=== PATIENT | male | born 1990 | race Caucasian/White ===

== ENCOUNTER 2022-09-22 01:36 | Emergency (ER) | payer SELFPAY ==
[2022-09-22 01:38] VITALS: BP 149/62; PULSE 108; RESP 17; TEMP 36.6; O2SAT 98; BMI 24.5
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
== END 2022-09-22 03:39 | disposition home or self-care (01) ==
PROVIDERS: Emergency Provider Emergency Medicine; Visit Provider Emergency Medicine
DX: M25.511 Pain in right shoulder (principal); Y04.0XXA Assault by unarmed brawl or fight, initial encounter; F17.290 Nicotine dependence, other tobacco product, uncomplicated
CPT/HCPCS: 70450; 73030; 99283

== ENCOUNTER 2022-09-23 12:05 | Emergency (ER) | payer OTHER, SELFPAY ==
[2022-09-23 12:13] VITALS: BP 163/100; PULSE 84; RESP 16; TEMP 36.4; O2SAT 99; BMI 26.6
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
[2022-09-23] MEDS: Ibuprofen 400 MG Tablet 800 MG PO (12:41)
== END 2022-09-23 12:49 | disposition home or self-care (01) ==
LOC: ED 12:43
PROVIDERS: Emergency Provider Emergency Medicine; Visit Provider Emergency Medicine
DX: M25.519 Pain in unspecified shoulder (principal); F17.210 Nicotine dependence, cigarettes, uncomplicated
CPT/HCPCS: 99283